=== PATIENT | female | born 1955 | race Caucasian/White ===

== ENCOUNTER → 2020-08-02 17:02 | Outpatient (BNVA) | payer MEDICARE, MEDICAID, SELFPAY | PROVIDERS: Family Provider Family Medicine; PCP Family Medicine; Visit Provider Registered Nurse Neonatal Intensive Care | DX: N39.0 Urinary tract infection, site not specified (principal); B37.9 Candidiasis, unspecified | CPT/HCPCS: 81000 ==

== ENCOUNTER → 2023-03-29 11:33 | Outpatient (BNVA) | payer MEDICARE, MEDICAID, SELFPAY | PROVIDERS: Family Provider Family Medicine; PCP Family Medicine; Visit Provider Family Medicine | DX: R09.81 Nasal congestion (principal); J01.90 Acute sinusitis, unspecified | CPT/HCPCS: 87400 ==

== ENCOUNTER 2023-09-21 06:00 | Outpatient (CLI) | payer MEDICARE, MEDICAID, SELFPAY | END 2023-09-21 06:01 | disposition home or self-care (01) | LOC: RAD 11-12 09:57 | PROVIDERS: PCP Family Medicine; Visit Provider Family Medicine | DX: E11.9 Type 2 diabetes mellitus without complications (principal); I10 Essential (primary) hypertension | CPT/HCPCS: 80053; 80061; 83036; 83721; 84439; 84443; 85025 ==

== ENCOUNTER 2024-03-28 21:03 | Emergency (ER) | payer MEDICARE, MEDICAID, SELFPAY ==
[2024-03-28 21:16] VITALS: BP 205/112; PULSE 76; RESP 16; TEMP 36.8; O2SAT 98
--- NOTE | 2024-03-28 22:17 | ED_ITS ---
HPI - Wound/Laceration General: Chief Complaint: Wound/Laceration Stated Complaint: Left thumb injury, bleeding Time Seen by Provider: 03/28/24 22:12 History of Present Illness: 68-year-old female comes in today with a injury to the left thumb. Patient was opening a can of dog food and pulled forward causing the can to cut the dorsal aspect of her proximal left thumb. Patient has a 2 cm laceration vertical in nature to the thumb. Patient has normal range of motion of the finger. Patient cannot recall her last tetanus. Related Data Home Medications Medication Instructions Recorded Confirmed Multi Vitamin PO 05/14/19 11/26/23 famotidine 20 mg tablet (Pepcid) 20 mg PO BID 05/14/19 11/26/23 cinnamon bark 500 mg capsule 500 mg PO DAILY 10/01/23 11/26/23 (Cinnamon) hydrocodone 7.5 mg-acetaminophen 1 tab PO Q6H PRN 10/01/23 11/26/23 325 mg tablet vitamin B complex 1 tab PO DAILY 10/01/23 11/26/23 Previous Rx's Medication Instructions Recorded albuterol sulfate 90 mcg/actuation See Rx Instructions inhalation 05/14/19 aerosol inhaler (ProAir HFA) .COMPLEX PRN shortness of breath or wheezing #8.5 grams fluticasone propionate 50 See Rx Instructions .Route 06/04/23 mcg/actuation nasal .COMPLEX #48 grams spray,suspension glipizide 10 mg tablet 10 mg PO BID #180 tabs 11/26/23 loratadine 10 mg tablet (Claritin) 10 mg PO DAILY #60 tabs 11/26/23 metoprolol tartrate 50 mg tablet 50 mg PO BID #180 tabs 11/26/23 nicotine 14 mg/24 hr daily 1 patch transdermal DAILY #28 ea 11/26/23 transdermal patch cyclobenzaprine 10 mg tablet 10 mg PO ONCE PRN spasms #30 tabs 01/19/24 blood-glucose meter #1 ea 02/19/24 losartan 25 mg tablet 25 mg PO DAILY #90 tabs 03/16/24 cephalexin 500 mg capsule 500 mg PO BID 7 days #14 caps 03/28/24 Allergies Allergy/AdvReac Type Severity Reaction Status Date / Time azithromycin Allergy Mild YEAST Verified 11/26/23 10:52 INFECTION meperidine [From Demerol] Allergy vomiting Verified 11/26/23 10:52 Review of Systems General: Reports: 10 or more systems reviewed and unremarkable except in HPI and below Skin/Breast: Reports: other (Finger laceration) PFSH ED PFSH: Medical History (Updated 03/28/24 @ 22:35 by TARA Joiner) Chronic pain of left knee GERD (gastroesophageal reflux disease) Tobacco use disorder Type 2 diabetes mellitus COPD (chronic obstructive pulmonary disease) Essential hypertension Allergic rhinitis due to allergen COPD with exacerbation Social History Smoking and tobacco/nicotine status: current every day tobacco/nicotine user Quit status (tobacco/nicotine): not considering quitting Second hand smoke exposure: No Alcohol intake: never Substance/Drug Use: never Physical Exam Const: COMMON NORMALS: alert HENMT: COMMON NORMALS: normocephalic HEAD & SCALP: normocephalic Neck/C-Spine: COMMON NORMALS: full ROM Resp: COMMON NORMALS: normal respiratory effort Cardio: COMMON NORMALS: regular rate RATE: regular rate Back/Pelvis: COMMON NORMALS: thoracic and lumbar spine normal to inspection Extremity: NARRATIVE EXTREMITY EXAM: Superficial laceration to the proximal dorsal left thumb, normal range of motion of the finger. Neuro: SENSORIUM/ORIENTATION: Yes alert Skin: NARRATIVE SKIN EXAM: 2 cm laceration left thumb Procedures Laceration Laceration 1: Site: hand Side (If applicable): left Size (cm): 2 Description: linear Depth: simple, single layer Local Anesthetic: lidocaine 1% and with epi Amount of anesthesia used (mL): 5 Pre-repair: wound explored and irrigated extensively Skin layer closed with: nylon Size (cm): 4-0 Number of sutures: 2 Technique: horizontal mattress Course Vital Signs: Vital signs: Vital Signs Temperature 98.2 F 03/28/24 21:16 Pulse Rate 76 03/28/24 21:16 Respiratory Rate 16 03/28/24 21:16 Blood Pressure 205/112 03/28/24 21:16 Pulse Oximetry 98 03/28/24 21:16 Oxygen Delivery Me thod Room Air 03/28/24 21:16 MDM - Wound/Laceration Medical Decision Making 68-year-old female comes in today for injury to the right thumb. On exam patient appears nontoxic. Patient appears no acute distress. Patient has a 2 cm laceration to the dorsal left thumb. Differential diagnosis tendon injury, foreign body, laceration. No foreign body or fractures noted within the wound. Wound was cleaned and approximated and held intact with 2 horizontal mattress sutures. Patient tolerated well. No radiology studies performed this visit Discharge Plan Discharge Patient Disposition: Home Clinical Impression: Laceration of thumb, left Qualifiers: Encounter type: initial encounter Damage to nail status: without damage Foreign body presence: without foreign body Qualified Code(s): S61.012A - Laceration without foreign body of left thumb without damage to nail, initial encounter Condition: Stable Prescriptions: New cephalexin 500 mg capsule 500 mg PO BID 7 Days Qty: 14 0RF No Action Multi Vitamin PO famotidine [Pepcid] 20 mg tablet 20 mg PO BID albuterol sulfate [ProAir HFA] 90 mcg/actuation HFA aerosol inhaler See Rx Instructions INHALATION .COMPLEX PRN (Reason: shortness of breath or wheezing) Qty: 8.5 0RF Rx Instructions: 1-2 puffs inhalation every 4 hours PRN; vitamin B complex Tablet 1 tab PO DAILY cinnamon bark [Cinnamon] 500 mg capsule 500 mg PO DAILY hydrocodone-acetaminophen 7.5-325 mg tablet 1 tab PO Q6H PRN Rx Instructions: BID to QID PRN nicotine 14 mg/24 hr patch 24 hour 1 patch transdermal DAILY Qty: 28 2RF glipizide 10 mg tablet 10 mg PO BID Qty: 180 1RF loratadine [Claritin] 10 mg tablet 10 mg PO DAILY Qty: 60 1RF metoprolol tartrate 50 mg tablet 50 mg PO BID Qty: 180 1RF fluticasone propionate 50 mcg/actuation spray,suspension See Rx Instructions .ROUTE .COMPLEX Qty: 48 0RF Dose Instruction: SHAKE LIQUID AND USE 2 SPRAYS IN EACH NOSTRIL DAILY Rx Instructions: SHAKE LIQUID AND USE 2 SPRAYS IN EACH NOSTRIL DAILY cyclobenzaprine 10 mg tablet 10 mg PO ONCE PRN (Reason: spasms) Qty: 30 1RF (DME) blood-glucose meter Misc See Rx Instructions .MEDSUPPLY Qty: 1 0RF Rx Instructions: Use as directed for checking blood sugar. check once daily losartan 25 mg tablet 25 mg PO DAILY Qty: 90 1RF Discharge Orders: Discharge ED (Routine); Ordered 03/28/24 Ordered By: Isauro Junior Referrals: Prashant Bingham [Family Provider] - Nolan Ramos MD [Primary Care Provider] - Discharge Diet: Usual diet Discharge Activity: Increase activity as tolerated Patient Instructions: Finger Laceration (ED) Activity Restrictions/Additional Instructions: Keep wound clean and dry. Is very important keep the wound as dry as possible for the first 48 hours. After that she can lightly wash the wound with mild soap and cover as needed. You are going to get the wound wet thoroughly dry it shortly after getting it wet. Make sure to let the wound completely air dry before applying a new dressing. Only use gloves sparingly to avoid moisture collecting around the wound. Only use airtight dressings to prevent from getting wet and then removed shortly after concern for moisture. Sutures can come out in 7 days. Coding Level of Care Code ED [employer] for Louise Oscar
[2024-03-28] MEDS: tetanus-dipt-pertussis 0.5 mL SDV IM (22:24)
[2024-03-28] MEDS: lidocaine-epi 1% 20 mL INJ 5 ML INJECTION (22:24)
[2024-03-28 22:45] VITALS: BP 183/101; PULSE 73; RESP 16; O2SAT 97
== END 2024-03-28 22:44 | disposition home or self-care (01) ==
PROVIDERS: Emergency Provider Nurse Practitioner Family; Family Provider Family Medicine; PCP Family Medicine
DX: S61.012A Laceration without foreign body of left thumb without damage to nail, initial encounter (principal); Z72.0 Tobacco use; E11.9 Type 2 diabetes mellitus without complications; J44.9 Chronic obstructive pulmonary disease, unspecified; W26.8XXA Contact with other sharp object(s), not elsewhere classified, initial encounter
CPT/HCPCS: 12001; 90471; 90715; 99283

== ENCOUNTER → 2024-07-14 11:06 | Outpatient (BNVA) | payer MEDICARE, MEDICAID, SELFPAY | PROVIDERS: PCP Family Medicine; Visit Provider Family Medicine | DX: E11.9 Type 2 diabetes mellitus without complications (principal); I10 Essential (primary) hypertension; F17.219 Nicotine dependence, cigarettes, with unspecified nicotine-induced disorders; Z71.6 Tobacco abuse counseling; J44.9 Chronic obstructive pulmonary disease, unspecified; K21.9 Gastro-esophageal reflux disease without esophagitis; M25.562 Pain in left knee; G89.29 Other chronic pain; F43.21 Adjustment disorder with depressed mood; B37.9 Candidiasis, unspecified; Z12.2 Encounter for screening for malignant neoplasm of respiratory organs | CPT/HCPCS: 80053; 80061; 83036; 83721; 85025 ==

== ENCOUNTER 2024-07-28 07:45 | Outpatient (CLI) | payer MEDICARE, MEDICAID, SELFPAY ==
--- NOTE | 2024-07-28 09:00 | CT_ITS ---
WS: [id number] LDCT LUNG CANCER SCREENING TECHNIQUE: Noncontrast CT of the chest with coronal and sagittal reformatted images. CLINICAL INFORMATION: screening COMPARISON: None. DLP: 111.29 mGy.cm DIvol: Mean CTDIvol: 2.60 (mGy) All CT scans at [facility] use at least one of these dose optimization techniques: automated exposure control; mA and/or kV adjustment per patient size (includes targeted exams where dose is matched to clinical indication); or iterative reconstruction. FINDINGS: Mild chronic emphysematous changes. A few calcified granulomas. No suspicious pulmonary parenchymal abnormalities. Aortic calcification. Coronary calcification. No mediastinal or hilar lymphadenopathy. No axillary lymphadenopathy. Cholecystectomy clips. Tiny esophageal hiatal hernia. Adrenal glands are normal. Mild thoracic curve. Thoracic kyphosis. CT/CT lung screening [id number] IMPRESSION: LUNG-RADS: 1-Negative FOLLOW UP: 12 Month: Continue annual screening with LDCT
== END 2024-07-28 07:46 | disposition home or self-care (01) ==
PROVIDERS: PCP Family Medicine; Visit Provider Family Medicine
DX: Z12.2 Encounter for screening for malignant neoplasm of respiratory organs (principal); F17.219 Nicotine dependence, cigarettes, with unspecified nicotine-induced disorders; J43.8 Other emphysema; J84.10 Pulmonary fibrosis, unspecified; I70.0 Atherosclerosis of aorta; I25.10 Atherosclerotic heart disease of native coronary artery without angina pectoris; Z90.49 Acquired absence of other specified parts of digestive tract; M43.8X4 Other specified deforming dorsopathies, thoracic region; M40.294 Other kyphosis, thoracic region
CPT/HCPCS: 71271

== ENCOUNTER 2024-10-19 11:28 | Outpatient (CLI) | payer OTHER, MEDICAID, SELFPAY | END 2024-10-19 11:29 | disposition home or self-care (01) | LOC: LAB 11:29 | PROVIDERS: PCP Family Medicine; Visit Provider Family Medicine | DX: E11.9 Type 2 diabetes mellitus without complications (principal) | CPT/HCPCS: 80053; 83036; 84439; 84443; 85025 ==

== ENCOUNTER → 2025-01-19 09:39 | Outpatient (BNVA) | payer OTHER, MEDICAID, SELFPAY | PROVIDERS: PCP Family Medicine; Visit Provider Family Medicine | DX: E11.9 Type 2 diabetes mellitus without complications (principal) | CPT/HCPCS: 80048; 83036 ==